=== PATIENT | male | born 1940 | race Caucasian/White ===

== ENCOUNTER 2018-06-14 13:25 | Emergency (ER) | payer MEDICARE ==
[~2018-06-14] VITALS: Ht 177.8 cm; Wt 103.9 kg
--- NOTE | 2018-06-14 14:00 | NUR ---
[id number], FROM HOME DUE TO HYPOGLYCEMIA BS 45, D10 GIVEN ON SCENE BS WENT UP,DENIES H/A, N/V. . DENIES SOB,, DENIES BLURRY VISION
[2018-06-14 14:18] LABS: BASOPHILS % (AUTO) 0.4 % (0.0-2.0); EOSINOPHILS % (AUTO) 8.4 % (0.0-6.0); HEMATOCRIT 36 % (39-51); HEMOGLOBIN 11.8 g/dL (13.5-17.5); LYMPHOCYTES # (AUTO) 0.5 /CMM (0.8-4.8); MEAN CORPUSCULAR HGB CONC 33 g/dl (31.0-36.0); MEAN CORPUSCULAR VOLUME 89 fL (80-96); MONOCYTES # (AUTO) 0.6 /CMM (0.1-1.30); MONOCYTES % (AUTO) 9.6 % (2.0-12.0); NEUTROPHILS # (AUTO) 4.3 /CMM (1.8-8.9); NEUTROPHILS % (AUTO) 72.6 % (43.0-81.0); PLATELET COUNT (AUTO) 147 /CMM (150-450); RED BLOOD CELL COUNT(AUTO) 3.99 MIL/uL (4.5-6.0)
[2018-06-14 14:28] LABS: CARBON DIOXIDE 29 mmol/L (21-32); CHLORIDE 99 mmol/L (98-107); CREATININE 2.8 mg/dL (0.6-1.3); GLUCOSE 88 mg/dL (74-106); POTASSIUM 3.5 mmol/L (3.5-5.1); SODIUM SERUM 134 mmol/L (136-145)
[2018-06-14 14:29] LABS: UREA NITROGEN, BLOOD 103 mg/dL (7-18)
[2018-06-14 15:35] VITALS: BP 108/70
--- NOTE | 2018-06-14 15:45 | NUR ---
BLOOD SUGAR 183 DR. Bob RODRIGUEZ
--- NOTE | 2018-06-14 16:03 | NUR ---
Patient discharged to home in stable condition. Written and verbal after care instructions given. Patient verbalizes understanding of instruction.IV removed. Catheter intact and site benign. Pressure and 4x4 applied to site. No bleeding noted.
== END 2018-06-14 16:07 | disposition home or self-care (01) ==
LOC: ER 13:29
DX: E11.649 Type 2 diabetes mellitus with hypoglycemia without coma (principal); E11.22 Type 2 diabetes mellitus with diabetic chronic kidney disease; I12.9 Hypertensive chronic kidney disease with stage 1 through stage 4 chronic kidney disease, or unspecified chronic kidney disease; N18.9 Chronic kidney disease, unspecified
CPT/HCPCS: 36415; 80048-TC; 82962-TC; 85025-TC